=== PATIENT | male | born 1950 | race Caucasian/White ===

== ENCOUNTER 2020-05-27 05:18 | Observation (INO) ==
--- NOTE | 2020-05-07 15:51 | PAT Medication Instructions ---
Medication Instructions Date of Service May 07, 2020 Home Medications albuterol sulfate [ProAir HFA] 1 inh INHALATION QID PRN lisinopril 5 mg PO QPM mometasone 50 mcg INHALATION BID mometasone-formoterol [Dulera] 2 puff INHALATION BID sildenafil [Viagra] 100 mg PO DAILY PRN simvastatin 40 mg PO PM STOP taking 24 hours before surgery sildenafil [Viagra] 100 mg PO DAILY PRN Take morning of surgery OTHERWISE NOTHING TO EAT OR DRINK AFTER MIDNIGHT: albuterol sulfate [ProAir HFA] 1 inh INHALATION QID PRN (if needed, and bring with you to the hospital) mometasone 50 mcg INHALATION BID mometasone-formoterol [Dulera] 2 puff INHALATION BID Take evening before surgery albuterol sulfate [ProAir HFA] 1 inh INHALATION QID PRN (if needed) lisinopril 5 mg PO QPM mometasone 50 mcg INHALATION BID mometasone-formoterol [Dulera] 2 puff INHALATION BID simvastatin 40 mg PO PM Other Notes If you have any questions please call us at [phone] or [phone] or [phone] or [phone]
--- NOTE | 2020-05-08 11:06 | Anesthesiology Consultation ---
Date of Service May 08, 2020 Assessment & Plan (1) Encounter for pre-operative examination: COVID Status: As of 05/08 assessment, patient denies travel to endemic area, known exposure/sick contacts, or symptoms of COVID19. Patient instructed that they and their household members must follow strict social distancing guidelines, wear a mask in public and avoid travel/events/gatherings for 14 days prior to surgery. Preoperative COVID19 testing to be completed prior to surgery per surgeon's arrangements (05/21). Patient made aware to self-isolate as much as possible between COVID testing and surgery. Patient VERY concerned about having a catheter during surgery. He reports he has significant urethral scarring 2/2 prostatectomy and has been told he should not have a urinary catheter if possible. I informed him that I would document this for anesthesia, but he should make this clear to nursing staff and surgeon prior to surgery on DOS. Chart Review Chart Review: Acceptable Risk for Surgery and Patient seen in Pre Admission Testing Teaching & Discussion Instructed NPO after midnight before surgery, except medications with 15 cc of water. Medication instructions provided according to the PAT guidelines. History Surgery Operation Date: 05/27/20 10:30 Proposed Procedures p Left Anterior Total Hip Arthroplasty - Jorge Barrett DO Height/Weight Height: 5 ft 10 in Weight: 100.4 kg Allergies Allergy/AdvReac Type Severity Reaction Status Date / Time Bactrim Allergy Unknown Heart Verified 09/07/14 14:52 Races, sensation of climbing out of skin. sulfamethoxazole [Bactrim] Allergy Unknown Heart Verified 04/12/20 12:17 Races, sensation of climbing out of skin. trimethoprim [Bactrim] Allergy Unknown Heart Verified 04/12/20 12:17 Races, sensation of climbing out of skin. Medications Home Medications Medication Instructions Recorded Confirmed Last Taken albuterol sulfate [ProAir HFA] 1 inh INHALATION QID PRN 04/12/20 04/12/20 Unknown lisinopril 5 mg PO QPM 04/12/20 04/12/20 Unknown mometasone 50 mcg INHALATION BID 04/12/20 04/12/20 Unknown mometasone-formoterol [Dulera] 2 puff INHALATION BID 04/12/20 04/12/20 Unknown sildenafil [Viagra] 100 mg PO DAILY PRN 04/12/20 04/12/20 Unknown simvastatin 40 mg PO PM 04/12/20 04/12/20 Unknown Past Medical History Medical History Asthma Chronic obstructive pulmonary disease Dulera daily, never uses albuterol unless he has a cold/URI symptoms DJD (degenerative joint disease) Hyperlipidemia Hypertension Osteoarthritis Prostate cancer surgical intervention about 12 years ago Exercise / Class Metabolic Activity II 4-5 Yardwork/Stairs/Walk up hill Past Surgical History Surgical History Hx of colonoscopy Hx of prostatectomy about 12 years ago Hx of sinus surgery x3 for polyps Past Anesthesia History No Hx of Anesthesia Complications and No Family Hx of Anesthesia Complications History of PONV No Hx of PONV and No Hx of Motion Sickness Social History Smoking Status: Never smoker Do You Dip or Chew Tobacco: No Hx Alcohol Use: Yes alcohol intake frequency: a few times a month Hx Substance Use: No substance use type: does not use Review of Systems Pt denies any recent chest pain, shortness of breath, palpitations, cough, fever, URI, or uncontrolled acid reflux. +hoarseness, chronic Physical Exam Vital Signs BP: 151/91. Per review of S records, BP usually 130s/140s over 80s. P: 63bpm SPO2: 97% RA T: 98.5 F R: 16 ENMT Mouth: + dental restorations (implants, one post in preparation to have implant placed); no chipped teeth and no loose teeth Thyromental Distance: > or= 3.5 Finger Breadths Mallampati Class: III Neck + limited neck extension (mildly) and + facial hair (very short goatee) Respiratory normal respiratory effort, lungs clear to auscultation Cardiovascular RRR, no murmur, no edema Vessels: no carotid bruit Testing Laboratory Results 05/08/20 11:20 05/08/20 11:20 PT 9.9 Seconds (9.0-12.0) 05/08/20 11:20 INR 1.0 (0.9-1.1) 05/08/20 11:20 APTT 26.8 Seconds (21.0-31.0) 05/08/20 11:20 Urine Color Yellow 05/08/20 11:20 Urine Appearance Clear (Clear) 05/08/20 11:20 Urine pH 6.5 (4.5-7.5) 05/08/20 11:20 Ur Specific [place] 1.016 (1.000-1.030) 05/08/20 11:20 Urine Protein Negative (Negative) 05/08/20 11:20 Urine Glucose (UA) Negative (Negative) 05/08/20 11:20 Urine Ketones Negative (Negative) 05/08/20 11:20 Urine Nitrite Negative (Negative) 05/08/20 11:20 Ur Leukocyte Esterase Negative (Negative) 05/08/20 11:20 Blood Type O Positive 05/08/20 11:20 Antibody Screen NEGATIVE 05/08/20 11:20 Electrocardiogram Date: 05/08/20 Findings: + NSR @ (60bpm) and + no change from (2002) Chest X-Ray Date: 05/08/20 Findings: + NAD
[2020-05-08 12:01] LABS: Basophils # (auto) 0.04 K/uL (0-0.2); Basophils % (auto) 1.1 %; Eosinophils # (auto) 0.08 K/uL (0-0.5); Eosinophils % (auto) 2.2 %; Hematocrit (blood only) 43.1 % (42-52); Hemoglobin 14.7 g/dL (14.0-18.0); Immature Granulocytes # (auto) 0.01 K/uL (0.00-0.02); Immature Granulocytes % (auto) 0.3 %; Lymphocytes # (auto) 0.98 K/uL (1.2-3.4); Lymphocytes % (auto) 27.1 %; Mean Corpuscular Hemoglobin 28.8 pg (25-34); Mean Corpuscular Hgb Conc 34.1 g/dL (32-36); Mean Corpuscular Volume 84.5 fL (80-100); Mean Platelet Volume 10.3 fL (7.4-10.4); Monocytes # (auto) 0.42 K/uL (0.11-0.59); Monocytes % (auto) 11.6 %; Neutrophils # (auto) 2.09 K/uL (1.4-6.5); Neutrophils % (auto) 57.7 %; Platelet Count 160 K/uL (130-400); RDW Coefficient of Variation 13.8 % (11.5-14.5); RDW Standard Deviation 43.1 fL (36.4-46.3); White Blood Count 3.62 K/uL (4.8-10.8)
[2020-05-08 12:03] LABS: Appearance Urine Clear (Clear); Bilirubin Urine Negative (Negative); Blood Urine Negative (Negative); Color Urine Yellow; Glucose Urine UA Negative (Negative); Ketones Urine Negative (Negative); Leukocyte Esterase Urine Negative (Negative); Nitrite Urine Negative (Negative); Protein Urine Negative (Negative); Specific Gravity Urine 1.016 (1.000-1.030); Urobilinogen Urine Negative (Negative); pH Urine 6.5 (4.5-7.5)
--- NOTE | 2020-05-08 12:03 | XRay Report ---
XR chest Pre-admission PA/Lat HISTORY: 70 years-old Male pat preoperative exam. No acute chest complaints COMPARISON: None TECHNIQUE: PA and lateral views of the chest FINDINGS: Cardiomediastinal and hilar silhouettes are within normal limits. There is no pneumothorax, pleural e ffusion, airspace consolidation or overt pulmonary edema. The bones of the chest appear grossly intac t. IMPRESSION: No acute process. ACT 112: Negative or not required by law. The above report was generated using voice recognition software. It may contain grammatical, syntax o r spelling errors. Electronically signed by: Ferny Flores M.D. 05/08/2020 12:02 PM
[2020-05-08 12:15] LABS: Partial Thromboplastin Time 26.8 Seconds (21.0-31.0); Prothrombin Time 9.9 Seconds (9.0-12.0)
[2020-05-08 14:33] LABS: Albumin Level 3.6 gm/dl (3.4-5.0); BUN Creatinine Ratio 13.1 (10-20); Calcium 8.9 mg/dl (8.5-10.1); Creatinine Clr Calc Pharmacy 103.7 ml/min; Est GFR (African American) 105.8; Est GFR (Non-African American) 91.3; Potassium 4.1 mmol/L (3.5-5.1)
--- NOTE | 2020-05-08 16:20 | Electrocardiogram Report ---
Test Reason : Blood Pressure : / mmHG Vent. Rate : 060 BPM Atrial Rate : 060 BPM P-R Int : 190 ms QRS Dur : 088 ms QT Int : 386 ms P-R-T Axes : 071 036 033 degrees QTc Int : 386 ms Normal sinus rhythm Normal ECG When compared with ECG of 11-NOV-2002 13:14, No significant change was found Confirmed by Tavon Christian ([id number]) on 05/08/2020 4:19:54 PM Referred By: Jorge Barrett Confirmed By:Tavon Christian
[2020-05-09 08:28] LABS: Estimated Average Glucose 123 mg/dl; Hemoglobin A1C 5.9 % (4.5-5.6)
--- NOTE | 2020-05-25 08:22 | History & Physical Report ---
Date of Service May 27, 2020 Assessment & Plan (1) Degenerative joint disease of left hip: I have indicated the patient for left anterior total hip replacement. The risks, benefits and complications of surgery were explained to the patient which include but not limited to infection, acute blood loss, DVT/PE, injury to nerves, vessels, bone, soft tissue, arthrofibrosis, chronic pain, failure of the prosthesis, hip dislocation, leg length discrepancy, need for additional surgery, cardiac and pulmonary events and . The patient wished to proceed with surgery and informed consent was obtained at this time. We will plan for 81mg ASA BID post-operatively for DVT prophylaxis. Upon discharge the patient will be discharged home with home health services. Appropriate clearances by PCP were obtained. History of Present Illness Chief Complaint: Left hip pain/DJD Primary Care Provider: Reynaldo London PA-C The patient is a 70 year old male who presents with complaints of severe left hip pain and DJD. The patient has failed outpatient conservative treatments to this point which included NSAIDs, activity modification, home exercise/walking program. The patient's pain and limited function have progressed to the point where they severely hinder their activities of daily living and they no longer tolerate exercise programs. They are requesting to proceed with total hip replacement surgery. Allergies Allergy/AdvReac Type Severity Reaction Status Date / Time Bactrim Allergy Unknown Heart Verified 09/07/14 14:52 Races, sensation of climbing out of skin. sulfamethoxazole [Bactrim] Allergy Unknown Heart Verified 05/27/20 05:44 Races, sensation of climbing out of skin. trimethoprim [Bactrim] Allergy Unknown Heart Verified 05/27/20 05:44 Races, sensation of climbing out of skin. Home Medications Medication Instructions Recorded Confirmed Type albuterol sulfate [ProAir HFA] 1 inh INHALATION QID PRN 04/12/20 05/27/20 History lisinopril 5 mg PO QPM 04/12/20 05/27/20 History mometasone 50 mcg INHALATION BID 04/12/20 05/27/20 History mometasone-formoterol [Dulera] 2 puff INHALATION BID 04/12/20 05/27/20 History sildenafil [Viagra] 100 mg PO DAILY PRN 04/12/20 05/27/20 History simvastatin 40 mg PO PM 02/12/21 03/29/21 History Past Med/Surg History Medical History Asthma Chronic obstructive pulmonary disease Dulera daily, never uses albuterol unless he has a cold/URI symptoms DJD (degenerative joint disease) Hyperlipidemia Hypertension Osteoarthritis Prostate cancer surgical intervention about 12 years ago Surgical History Hx of colonoscopy Hx of prostatectomy about 12 years ago Hx of sinus surgery x3 for polyps Social History Smoking Status: Never smoker Second Hand Exposure: No; Do You Dip or Chew Tobacco: No; Tobacco Cessation Education Requested by Patient: No Hx Alcohol Use: Yes Hx Substance Use: No Preferred Language: Turkish Communication Ability: Effective Db2 Systems Programmer Required: No Beliefs That Will Affect Care: None Current Living Situation: Spouse Other Information That Helps Us Care for You: No Feels Safe at Home: Yes Safety Concerns: Feels Safe At This Time Review of Systems Review of Systems: All systems reviewed & are unremarkable except as noted in HPI & below Constitutional: as per Subjective / HPI Physical Exam Physical Exam: LLE NVSI +EHL/FHL/TA/GS SILT grossly, +2 DP pulse, compartments soft NT, limited painful ROM of the hip, antalgic gait. Constitutional: WD/WN, vitals as above Eyes: PERRL, conjunctivae normal, anicteric sclerae ENMT: external ear and nose normal, oropharynx normal Neck: trachea midline, no thyromegaly Respiratory: normal respiratory effort, lungs clear to auscultation Cardiovascular: RRR, no murmur, no edema Gastrointestinal (Abdomen): normal bowel sounds, soft, nontender, no hepat osplenomegaly Musculoskeletal: no cyanosis or clubbing, extremities motor strength 5/5 Skin: no rashes, warm and dry Neurologic: patellar DTR's 2+ bilat, sensation intact Psychiatric: A+Ox3, euthymic affect Lymphatic: no cervical or axillary lymphadenopathy Results & Data Results & Data ([facility]) Diagnostic Findings Multiple views of the hip demonstrates severe DJD with complete loss of the joint space. +osteophytes, +sclerosis, +subchondral cysts. Pre Admission Testing Addendum Laboratory Results 05/08/20 11:20 05/08/20 11:20 PT 9.9 Seconds (9.0-12.0) 05/08/20 11:20 INR 1.0 (0.9-1.1) 05/08/20 11:20 APTT 26.8 Seconds (21.0-31.0) 05/08/20 11:20 Hemoglobin A1c 5.9 % (4.5-5.6) H 05/08/20 11:20 Urine Color Yellow 05/08/20 11:20 Urine Appearance Clear (Clear) 05/08/20 11:20 Urine pH 6.5 (4.5-7.5) 05/08/20 11:20 Ur Specific [place] 1.016 (1.000-1.030) 05/08/20 11:20 Urine Protein Negative (Negative) 05/08/20 11:20 Urine Glucose (UA) Negative (Negative) 05/08/20 11:20 Urine Ketones Negative (Negative) 05/08/20 11:20 Urine Nitrite Negative (Negative) 05/08/20 11:20 Ur Leukocyte Esterase Negative (Negative) 05/08/20 11:20 Blood Type O Positive 05/08/20 11:20 Antibody Screen NEGATIVE 05/08/20 11:20
[2020-05-27] MEDS ORDERED: ROPIVACAINE 0.5% HCL/PF 150 MG, BUPIVACAINE 0.75% MPF 20 ML, EPINEPHrine 30MG/30ML (OR ... INFIL SCH (06:00)
[2020-05-27] MEDS ORDERED: TRANEXAMIC ACID 1,000 MG x 1 **For Topical Use TOP SCH (06:00)
[2020-05-27] MEDS ORDERED: FAMOTIDINE 20 MG TAB PO SCH (06:00)
[2020-05-27] MEDS ORDERED: Scopolamine 1 MG TDSY TD SCH (06:00)
[2020-05-27] MEDS ORDERED: TRANEXAMIC ACID 1,000 MG **IV Pre-op IV SCH (06:00)
[2020-05-27] MEDS ORDERED: TRANEXAMIC ACID 1,000 MG **IV Intra-op IV SCH (06:00)
[2020-05-27] MEDS ORDERED: GABAPENTIN 300 MG CAP PO SCH (06:00)
[2020-05-27] MEDS ORDERED: ACETAMINOPHEN 500 MG TAB PO SCH (06:00)
[2020-05-27] MEDS ORDERED: METOCLOPRAMIDE HCL 10 MG TABLET PO SCH (06:00)
[2020-05-27] MEDS ORDERED: LR 500ML BOLUS, THEN 15ML/HR IV SCH (06:00)
[2020-05-27] MEDS ORDERED: ceFAZolin 2000MG 2,000 MG/15 ML SYR IV SCH (06:00)
[2020-05-27] MEDS ORDERED: dexAMETHasone 4 MG TAB PO SCH (06:00)
[2020-05-27] MEDS ORDERED: fentaNYL citrate 100 MCG/2 ML VIAL ONE (06:33)
[2020-05-27] MEDS ORDERED: MIDAZOLAM HCL 1 MG/ML 2ML VIAL ONE (06:33)
[2020-05-27] MEDS ORDERED: BUPIVACAINE 0.5 % 5 MG/1 ML PF 10ML VIAL ONE (06:41)
--- NOTE | 2020-05-27 06:44 | History & Physical Bridge Note ---
Date of Service May 27, 2020 History & Physical Bridge Note I have examined the patient, reviewed the History & Physical and in the interval since the performance of the History & Physical I have noted the following changes of clinical significance: no changes noted
[2020-05-27] MEDS ORDERED: ORTHO JOINT ANESTHETIC ONE (06:45)
[2020-05-27] MEDS ORDERED: BACITRACIN INJ 50,000 UNIT VIAL ONE (06:45)
[2020-05-27] MEDS ORDERED: ONDANSETRON INJ 2 MG/ML 2 ML VIAL ONE (07:33)
[2020-05-27] MEDS ORDERED: LIDOCAINE HCL 2% 2 ML VIAL/AMP(20MG/ML) INFIL ONE (07:33)
[2020-05-27] MEDS ORDERED: PROPOFOL IV EMULSION 10 MG/ML 20 ML VIAL IV ONE ×3 (07:33→08:27)
[2020-05-27] MEDS ORDERED: ePHEDrine sulfate 50 MG/ML SYR ONE (07:34)
[2020-05-27] MEDS ORDERED: ePHEDrine sulfate 50 MG/ML AMP IV PRN (08:06)
[2020-05-27] MEDS ORDERED: ATROPINE SULFATE 0.1 MG/ML 10ML SYR IV PRN (08:06)
[2020-05-27] MEDS ORDERED: ONDANSETRON INJ 2 MG/ML 2 ML VIAL IV PRN ×2 (08:06→10:22)
[2020-05-27] MEDS ORDERED: fentaNYL citrate 100 MCG/2 ML VIAL IV PRN (08:06)
[2020-05-27] MEDS ORDERED: HYDROmorphone INJ 2 MG/ML SYR/VIAL IV PRN (08:06)
--- NOTE | 2020-05-27 09:01 | Post Operative Brief Note ---
Immediate Post Op Note v1 Date of Surgery May 27, 2020 Pre & Post Diagnosis Operation Date: 05/27/20 07:00 Pre-Op Diagnosis: Unilateral Primary Osteoarthritis, Left Hip Post-Op Diagnosis: Unilateral Primary Osteoarthritis, Left Hip I identified the patient and participated in the time-out.: Yes Procedure Operation Date: 05/27/20 07:00 Actual Procedures p Left Anterior Total Hip Arthroplasty(Left) - Jorge Barrett DO Surgeon Jorge Barrett DO Radioisotope Technologist Suman Parra Estimated Blood Loss 235 Findings Consistent with Post-Op Diagnosis Fluids See anesthesia report Specimens Femoral head Anesthesia Type Spinal MAC Complications none Disposition Disposition: Recovery Room Overlapping Procedure I was present for: the critical portions of procedure. I was immediately available: during the entire case. Back up surgeon: was not required during procedure.
--- NOTE | 2020-05-27 09:03 | Operative Report ---
Post Operative Report Pre & Post Diagnosis Operation Date: 05/27/20 07:00 Pre-Op Diagnosis: Unilateral Primary Osteoarthritis, Left Hip Post-Op Diagnosis: Unilateral Primary Osteoarthritis, Left Hip I identified the patient and participated in the time-out.: Yes Procedure Operation Date: 05/27/20 07:00 Actual Procedures p Left Anterior Total Hip Arthroplasty(Left) - Jorge Barrett DO Surgeon Jorge Barrett DO Operations Section Manager Suman Parra Estimated Blood Loss 235 Findings Consistent with Post-Op Diagnosis Fluids See anesthesia report Specimens Femoral head Anesthesia Type Spinal MAC Disposition Disposition: Recovery Room Indications The patient is a 70-year-old male who presents with severe progressive left hip DJD who has failed outpatient conservative treatments. I indicated the patient for a anterior total hip replacement and the risks and benefits were explained in detail which include but not limited to infection, bleeding, blood clot, damage to surrounding bone, nerves, vessels, soft tissue, hip dislocation, failure of the prosthesis, leg length discrepancy, need for additional surgery and . The patient agreed to proceed with replacement of the hip and informed consent was obtained. Appropriate clearances were obtained. Description of Procedure COMPONENTS USED: [employer] hip system: Acetabulum size 56 G7 osteo-Ti, femur size 13.5 standard extended offset, femoral head 36+3.5, liner 56x30, acetabular screw 25 mm x 1. DESCRIPTION OF PROCEDURE: Following satisfactory spinal anesthesia, the patient was placed supine on the OR table. The right leg was placed in the well leg espinosa and the left leg in the traction device. The left leg was prepared with ChloraPrep and draped sterilely. A surgical timeout was performed, patient identified and site shahram verified. Appropriate antibiotics were given. A standard anterior approach in the interval between the sartorius and tensor muscles was performed. Dissection was carried down through subcutaneous tissues. Electrocautery was utilized for hemostasis. Circumflex femoral vessels were identified, tied and ligated. The anterior capsular fat pad was removed and the capsulotomy was performed revealing the arthritic femoral neck and head. A femoral neck cut was made with reciprocating saw and the bone fragments removed. The acetabular self-retraining retractor was placed. Acetabular reaming was completed under fluoroscopic guidance, a 56 mm shell was impacted into an anatomic position and secured with a acetabular screw. Local anesthetic was placed and following irrigation, the polyethylene liner was placed. The femur was placed into position of external rotation, extension and adduction. Femoral canal was prepared up to the size 13.5 standard extended offset. Trial reduction with a 36+3.5 neck length head showed good soft tissue tension, leg lengths restored, and good fit and fill of the proximal canal using fluoroscopic landmarks. The hip was dislocated. The trial component was removed. The final implant was placed. The hip was irrigated with sterile saline solution and reduced. A Betadine soak was performed. After 3 minutes, the hip was once more irrigated with copious sterile saline solution with bacitracin. Karen-incisional soft tissue was injected utilizing [place] [employer]ix which includes a combination of Ropivicaine 0.5% 150mg, Bupivicaine 0.5%/Epinephrine 1:200,000 30ml, Toradol 30mg, Dexamethasone 4mg, Ketamine 10mg, Clonidine 100mcg and NSS 30ml solution. The capsule was then closed with 1-0 Vicryl interrupted figure of eight sutures. The fascia was closed with a running suture of #1 Vicryl, the subcutaneous tissues with 2-0 Vicryl and the skin was closed with tatum and a sterile dry dressing was applied which included victor manuel incisional VAC. The patient tolerated the procedure well and was transported to PACU in stable condition. Due to the complex nature of the procedure, the entire surgery was performed with the operational assistance of Suman Parra PA-C. The environmental engineering assistant, under direct supervision, was involved in the actual performance of all aspects of the surgical procedure including patient positioning, hemostasis, tissue retraction, instrument management and wound closure. I attest to the content of the Intraoperative Record and any orders documented therein. Any exceptions are noted below.
--- NOTE | 2020-05-27 09:40 | XRay Report ---
AP PELVIS, CROSSTABLE LATERAL LEFT HIP History: Left total hip arthroplasty. Degenerative arthritis. Postop. FINDINGS: The patient is status post a left total hip arthroplasty. The hardware is intact. No fractu re or dislocation. Skin tatum are in place. IMPRESSION: Left total hip arthroplasty. No evidence for hardware complication. ACT 112: Negative or not required by law. Electronically signed by: Jack Payne M.D. 05/27/2020 9:38 AM
--- NOTE | 2020-05-27 10:00 | Fluoroscopy Report ---
FL hip LT 1V CLINICAL HISTORY: LEFT ANTERIOR HIP COMPARISON STUDY: None FLUOROSCOPY TIME: 31 seconds. FLUOROSCOPIC IMAGES: 3 FINDINGS: Fluoroscopy was provided during total left hip arthroplasty. Hardware is intact. Alignment is anatomic. No fractures are identified. There are no unexpected radiopaque foreign bodies. IMPRESSION: Fluoroscopy provided during total left hip arthroplasty. ACT 112: Negative or not required by law. Electronically signed by: Quan Roper M.D. 05/27/2020 9:59 AM
[2020-05-27] MEDS ORDERED: NALOXONE HCL 0.4 MG/1 ML VIAL/CARP IV PRN (10:22)
[2020-05-27] MEDS ORDERED: diphenhydrAMINE Capsule 25 MG CAP PO PRN (10:22)
[2020-05-27] MEDS: SODIUM CHLORIDE 0.9% 1000ML 1,000 ML IV SCH ×2 (10:22→19:48)
[2020-05-27] MEDS ORDERED: bisacodyL 10 MG SUPP PR PRN (10:22)
[2020-05-27] MEDS ORDERED: METOCLOPRAMIDE HCL INJ 5 MG/ML 2 ML VIAL IV PRN (10:22)
[2020-05-27] MEDS ORDERED: MAGNESIUM HYDROXIDE SUSP 30 ML UDC PO PRN (10:22)
[2020-05-27] MEDS ORDERED: HYDROmorphone INJ 0.5 MG/0.5 ML SYR IV PRN (10:22)
--- NOTE | 2020-05-27 10:24 | Anesthesiology Progress Note ---
Date of Service May 27, 2020 Anesthesia Post Procedure Vital Signs Vital Signs: Temp Pulse Pulse Resp BP Pulse Ox 05/27/20 10:15 72 16 138/98 98 05/27/20 10:00 36.4 C L 80 15 137/85 98 05/27/20 09:50 36.4 C L 82 15 145/87 H 96 05/27/20 09:40 83 14 106/85 96 05/27/20 09:30 81 15 127/64 99 05/27/20 09:21 36.3 C L 82 16 119/73 99 05/27/20 05:48 36.7 C 65 18 167/95 H 96 Transfer of Care Handoff Completed per policy Notes Mental Status: alert / awake / arousable and participated in evaluation Patient Amnestic to Procedure: Yes Nausea / Vomiting: adequately controlled Pain: adequately controlled Airway Patency, RR, SpO2: stable & adequate BP & HR: stable & adequate Hydration State: stable & adequate Neuraxial Anesthesia: was administered and sensory block is resolving Anesthetic Complications: no major complications apparent
[2020-05-27] MEDS: KETOROLAC TROMETHAMINE 15 MG/ML VIAL IV SCH ×2 (11:28→18:18)
[2020-05-27] MEDS: ACETAMINOPHEN 500 MG TAB PO SCH ×2 (14:17→22:32)
[2020-05-27] MEDS: ceFAZolin 2000MG 2,000 MG/15 ML SYR IV SCH (16:16)
[2020-05-27] MEDS: Scopolamine CHECK PATCH PLACEMENT SCH (16:22)
--- NOTE | 2020-05-27 17:00 | Orthopedic Progress Note ---
Date of Service May 27, 2020 Assessment & Plan (1) Degenerative joint disease of left hip: Status post left anterior total hip arthroplasty -Ancef x24 -DVT prophylaxis: SCDs, teds, 81 mg ASA twice daily -Weight-bear as tolerated left lower extremity -PT/OT -Postoperative x-ray demonstrates a well aligned well fixed prosthesis without fracture or dislocation -A.m. lab -Discharge planning home with home health Admission and Anticipated Discharge Date Admission Date: May 27, 2020 Subjective Post Operative Progress Note Patient seen sitting in chair at bedside, comfortable, denies complaints, pain well controlled, no acute issues. Review of Systems Review of Systems: All systems reviewed & are unremarkable except as noted in HPI & below Constitutional: as per Subjective / HPI Physical Exam Physical Exam: LLE NVSI +EHL/FHL/TA/GS SILT grossly, +2 DP pulse, compartments soft NT, dressing cdi. Constitutional: WD/WN, vitals as above Results & Data ([facility]) Vital Signs (Past 12 Hours) Vital Signs Temp Pulse Pulse Resp BP Pulse Ox 05/27/20 15:07 36.3 C L 77 18 129/87 95 05/27/20 13:27 36.3 C L 96 H 18 126/80 92 05/27/20 12:20 36.6 C 72 18 149/87 H 96 05/27/20 11:20 36.3 C L 73 16 157/85 H 96 05/27/20 10:50 36.4 C L 77 16 147/100 H 96 05/27/20 10:15 72 16 138/98 98 05/27/20 10:00 36.4 C L 80 15 137/85 98 05/27/20 09:50 36.4 C L 82 15 145/87 H 96 05/27/20 09:40 83 14 106/85 96 05/27/20 09:30 81 15 127/64 99 05/27/20 09:21 36.3 C L 82 16 119/73 99 05/27/20 05:48 36.7 C 65 18 167/95 H 96
[2020-05-27] MEDS: DOCUSATE SODIUM 100 MG CAP PO SCH (20:30)
[2020-05-27] MEDS ORDERED: SENNA 8.6 MG TAB PO SCH (21:00)
[2020-05-28] MEDS: ceFAZolin 2000MG 2,000 MG/15 ML SYR IV SCH (00:08)
[2020-05-28] MEDS: KETOROLAC TROMETHAMINE 15 MG/ML VIAL IV SCH ×2 (00:08→05:22)
[2020-05-28] MEDS: Scopolamine CHECK PATCH PLACEMENT SCH ×2 (00:08→09:22)
[2020-05-28] MEDS: oxyCODONE HCL IR 5 MG TAB (IMMEDIATE RELEASE) PO PRN ×2 (00:37→04:22)
[2020-05-28] MEDS ORDERED: diazePAM 5 MG TABLET PO PRN (02:17)
[2020-05-28] MEDS: ACETAMINOPHEN 500 MG TAB PO SCH ×2 (05:22→13:38)
[2020-05-28 06:50] LABS: Basophils # (auto) 0.01 K/uL (0-0.2); Basophils % (auto) 0.1 %; Eosinophils # (auto) 0.01 K/uL (0-0.5); Eosinophils % (auto) 0.1 %; Hematocrit (blood only) 33.1 % (42-52); Hemoglobin 11.3 g/dL (14.0-18.0); Immature Granulocytes # (auto) 0.01 K/uL (0.00-0.02); Immature Granulocytes % (auto) 0.1 %; Lymphocytes # (auto) 0.82 K/uL (1.2-3.4); Lymphocytes % (auto) 9.5 %; Mean Corpuscular Hemoglobin 28.8 pg (25-34); Mean Corpuscular Hgb Conc 34.1 g/dL (32-36); Mean Corpuscular Volume 84.2 fL (80-100); Mean Platelet Volume 9.8 fL (7.4-10.4); Monocytes # (auto) 0.83 K/uL (0.11-0.59); Monocytes % (auto) 9.7 %; Neutrophils # (auto) 6.92 K/uL (1.4-6.5); Neutrophils % (auto) 80.5 %; Platelet Count 186 K/uL (130-400); RDW Coefficient of Variation 13.5 % (11.5-14.5); RDW Standard Deviation 41.1 fL (36.4-46.3); Red Blood Count 3.93 M/uL (4.7-6.1)
--- NOTE | 2020-05-28 07:10 | Orthopedic Progress Note ---
Date of Service May 28, 2020 Assessment & Plan (1) Degenerative joint disease of left hip: Status post left anterior total hip arthroplasty POD#1 -Ancef x24 -DVT prophylaxis: SCDs, teds, 81 mg ASA twice daily -Weight-bear as tolerated left lower extremity -PT/OT -Postoperative x-ray demonstrates a well aligned well fixed prosthesis without fracture or dislocation -A.m. lab - as above, hgb 11.3 -Discharge planning home with home health Admission and Anticipated Discharge Date Admission Date: May 27, 2020 Subjective Post Operative Progress Note Patient seen sitting in chair at bedside, comfortable, denies complaints, pain well controlled, no acute issues. Denies F/C/N/V/SOB/CP. Patient reported muscles spasms overnight which have improved. Review of Systems Review of Systems: All systems reviewed & are unremarkable except as noted in HPI & below Constitutional: as per Subjective / HPI Physical Exam Physical Exam: LLE NVSI +EHL/FHL/TA/GS SILT grossly, +2 DP pulse, compartments soft NT, dressing cdi. Constitutional: WD/WN, vitals as above Results & Data ([facility]) Vital Signs (Past 12 Hours) Vital Signs Temp Pulse Resp BP Pulse Ox 05/28/20 02:05 36.4 C L 68 18 143/85 H 96 05/27/20 22:46 36.5 C 69 16 146/77 H 94 05/27/20 19:35 36.6 C 77 16 114/74 95 Laboratory Results 05/28/20 05/28/20 05/28/20 Range/Units 06:26 06:26 06:26 WBC 8.60 (4.8-10.8) K/uL RBC 3.93 L (4.7-6.1) M/uL Hgb 11.3 L (14.0-18.0) g/dL Hct 33.1 L (42-52) % MCV 84.2 (80-100) fL MCH 28.8 (25-34) pg MCHC 34.1 (32-36) g/dL RDW Std Deviation 41.1 (36.4-46.3) fL RDW Coeff of Mary 13.5 (11.5-14.5) % Plt Count 186 (130-400) K/uL MPV 9.8 (7.4-10.4) fL Immature Gran % (Auto) 0.1 % Neut % (Auto) 80.5 % Lymph % (Auto) 9.5 % [place] % (Auto) 9.7 % Eos % (Auto) 0.1 % Baso % (Auto) 0.1 % Neut # (Auto) 6.92 H (1.4-6.5) K/uL Lymph # (Auto) 0.82 L (1.2-3.4) K/uL [place] # (Auto) 0.83 H (0.11-0.59) K/uL Eos # (Auto) 0.01 (0-0.5) K/uL Baso # (Auto) 0.01 (0-0.2) K/uL Immature Gran # (Auto) 0.01 (0.00-0.02) K/uL Sodium Pending Potassium Pending Chloride Pending Carbon Dioxide Pending Anion Gap Pending BUN Pending Creatinine Pending Est Cr Clr Drug Dosing Pending Est GFR ( Amer) Pending Est GFR (Non-Af Amer) Pending BUN/Creatinine Ratio Pending Glucose Pending Calcium Pending Hepatitis C Ab Screen Pending
[2020-05-28 07:17] LABS: BUN Creatinine Ratio 20.8 (10-20); Calcium 8.7 mg/dl (8.5-10.1); Creatinine Clr Calc Pharmacy 113.7 ml/min; Est GFR (African American) 103.8; Est GFR (Non-African American) 89.5; Potassium 4.1 mmol/L (3.5-5.1)
--- NOTE | 2020-05-28 08:08 | Anesthesiology Progress Note ---
Date of Service May 28, 2020 Anesthesia Post Procedure Vital Signs Vital Signs: Temp Pulse Pulse Resp BP Pulse Ox 05/28/20 07:39 36.5 C 61 16 138/76 96 05/28/20 02:05 36.4 C L 68 18 143/85 H 96 05/27/20 22:46 36.5 C 69 16 146/77 H 94 05/27/20 19:35 36.6 C 77 16 114/74 95 05/27/20 15:07 36.3 C L 77 18 129/87 95 05/27/20 13:27 36.3 C L 96 H 18 126/80 92 05/27/20 12:20 36.6 C 72 18 149/87 H 96 05/27/20 11:20 36.3 C L 73 16 157/85 H 96 05/27/20 10:50 36.4 C L 77 16 147/100 H 96 05/27/20 10:15 72 16 138/98 98 05/27/20 10:00 36.4 C L 80 15 137/85 98 05/27/20 09:50 36.4 C L 82 15 145/87 H 96 05/27/20 09:40 83 14 106/85 96 05/27/20 09:30 81 15 127/64 99 05/27/20 09:21 36.3 C L 82 16 119/73 99 Pain Intensity Hip: Pain Intensity: 1 Notes Mental Status: alert / awake / arousable Nausea / Vomiting: adequately controlled Pain: adequately controlled Airway Patency, RR, SpO2: stable & adequate BP & HR: stable & adequate Hydration State: stable & adequate Neuraxial Anesthesia: was administered and sensory block resolved Anesthetic Complications: no major complications apparent and Pt Satisfied with anesthetic care
[2020-05-28] MEDS ORDERED: MULTIVITAMIN TAB PO SCH (09:00)
[2020-05-28] MEDS ORDERED: ASPIRIN 81 MG ECTAB PO SCH (09:00)
[2020-05-28] MEDS: DOCUSATE SODIUM 100 MG CAP PO SCH (09:22)
--- NOTE | 2020-05-28 21:40 | Discharge Summary ---
Date of Service May 28, 2020 Admission HPI Per Admitting Provider The patient is a 70 year old male who presents with complaints of severe left hip pain and DJD. The patient has failed outpatient conservative treatments to this point which included NSAIDs, activity modification, home exercise/walking program. The patient's pain and limited function have progressed to the point where they severely hinder their activities of daily living and they no longer tolerate exercise programs. They are requesting to proceed with total hip replacement surgery. Principal Diagnosis Left anterior total hip replacement Discharge Exam LLE NVSI +EHL/FHL/TA/GS SILT grossly, +2 DP pulse, compartments soft NT, dressing cdi. Constitutional WD/WN, vitals as above Discharge Data Allergies Allergy/AdvReac Type Severity Reaction Status Date / Time Bactrim Allergy Unknown Heart Verified 09/07/14 14:52 Races, sensation of climbing out of skin. sulfamethoxazole [Bactrim] Allergy Unknown Heart Verified 05/27/20 05:44 Races, sensation of climbing out of skin. trimethoprim [Bactrim] Allergy Unknown Heart Verified 05/27/20 05:44 Races, sensation of climbing out of skin. Procedures Performed Operation Date: 05/27/20 07:00 Actual Procedures p Left Anterior Total Hip Arthroplasty(Left) - Jorge Barrett DO Ordered Studies 05/27/20 07:00 FL fluoroscopy <1hr Routine FL hip LT 1V Routine Hospital Course (1) Degenerative joint disease of left hip: The patient is a 70 -year-old male who presents with long standing history of severe left hip DJD and failed outpatient conservative treatments. The patient's symptoms have progressed to the point where it has been difficult to perform even normal activities of daily living. I indicated the patient for a left anterior total hip arthroplasty, the risks, benefits and complications of the procedure include but not limited to infection, bleeding, damage to bone, nerves, vessels, surrounding soft tissue, may develop blood clots, loss of function, leg length discrepancy, dislocation, failure of the components, loosening of the components, the need for additional surgery and . The patient wished to proceed with surgery at this time and informed consent was obtained. Hospital Course: On 05/27/20 the patient was taken to the operating room, adequate anesthesia administered and underwent a left anterior total hip arthroplasty. The patient tolerated the procedure well and was taken to the PACU in stable condition. Post-operatively the patient was started on a DVT ppx medication and given appropriate IV antibiotics. Consults were placed to physical therapy, occupational therapy and case management. On POD#1, the patient did well overnight and their pain was well controlled. Labs were drawn and the Hgb was 11.3. The patient progressed well with PT. Dressings were changed at this time and the incision was clean, dry and intact. The patients hospital stay was relatively uneventful and they were deemed stable by the orthopedic team and consultants to be discharged home with on 05/28/20. Discharge Instructions: Upon discharge the patient may weight bear as tolerates through their operative extremity. They were instructed to keep the incision clean and dry at all times. The patient may shower but should not submerge the incision, avoid bathing, pools and hot tubs. The patient was given a script for pain medication and should take as instructed. The patient was given a script for DVT ppx 81mg ASA BID and should take as directed. The patient was instructed to not drive or travel for long distances until cleared to do so. If the patient develops any symptoms of fevers, chills, nausea, vomiting, increased redness, swelling, pain or drainage from the surgical site, they should notify the office and/or proceed to the nearest emergency room. The patient should follow up in 10-14 days after surgery for their routine post-operative follow-up appointment and should call the office, to confirm the date and time. Status post left anterior total hip arthroplasty POD#1 -Ancef x24 -DVT prophylaxis: SCDs, teds, 81 mg ASA twice daily -Weight-bear as tolerated left lower extremity -PT/OT -Postoperative x-ray demonstrates a well aligned well fixed prosthesis without fracture or dislocation -A.m. lab - as above, hgb 11.3 -Discharge planning home with home health Total Time Total Time Spent Total Time Spent (In Minutes): 30 Discharge Plan Discharge Items Patient Disposition: Home - Home Health Services Reason For Visit: Unilateral Primary Osteoarthritis, Left Hip Discharge Diagnosis: Left anterior total hip replacement Condition on Discharge: Good Activity: Per Instructions section Lifting: Wait until after follow-up appointment Bathing: Keep incision dry Bathing Comment: No bathing, pools or hot tubs. Sexual Activity: Wait until after follow-up appointment Exercise/Sports: Wait until after follow-up appointment Driving/Machine Use: No driving. Weightbearing: Full weightbearing Non-emergency contact: Primary Care Provider and Surgeon Call non-emergency contact if: you have any medication questions, your symptoms worsen, your pain is not controlled, your pain is worsening, your pain is unusual for you, your pain is concerning for you, you have a fever, your temperature is above 101, your wound has increased redness, your wound has increased drainage and your wound pain has increased Follow-up/Referrals: Reynaldo London PA-C [Primary Care Provider] - Diet: Regular Addtl Attending Provider Instructions: ACTIVITY RECOMMENDATIONS: SELF CARE INSTRUCTIONS AFTER TOTAL HIP REPLACEMENT : Direct Anterior Approach Until the incision and soft tissues around your hip have healed, there is a possibility that the hip prosthesis could dislocate. A. Hip flexion ( Up & Down out of chair or steps ) may be difficult. This is normal. B. Numbness in front of the thigh is also normal for a few weeks. C. Use hand rails when walking on stairs. D. Wear low heeled shoes with non-slip soles. E. Be sure that your floors are free of things that could trip you - throw rugs, electrical cords, small objects. Avoid wet and waxed floors, especially with crutches and canes. F. Try to walk several times a day with rest periods between. G. Continue with all the exercises taught to you in the hospital. Again, make walking a part of your daily routine. SPECIAL CARE INSTRUCTIONS: VERY IMPORTANT TO READ AND REVIEW A. You may still be at risk for phlebitis and blood clots. 1. Wear surgical stockings (FREDERIC hose) for 2 weeks after surgery to improve circulation and reduce swelling. 2. Take Aspirin 81mg twice daily for 4 weeks or as directed by your doctor. This is your blood thinner. 3. High risk patients may be prescribed a stronger blood thinner if necessary. 4. If you are on Coumadin normally, your family doctor/geochemist should monitor your blood work. Expect a phone call the day of or the day after bloodwork is drawn to adjust your dosage. B. You must take antibiotics before having dental work, bladder, bowel and other surgery. Your doctor will provide you with a permanent card to carry describing precautions. C. Call [facility] if you have a fever, redness or swelling around the incision, cloudy drainage from incision, or sudden increase in pain in your hip, not relieved by your regular pain medication. D. Please call the office at if you have any concerns or questions about your operation or recovery. * YOU MAY SHOWER, NO TUB BATHS UNTIL CLEARED BY YOUR DOCTOR. - Keep an extra close eye on the top portion of your incision. Be sure to keep clean & dry. * WEAR FREDERIC HOSE 20 HOURS PER DAY FOR 2 WEEKS. * YOU MAY PROGRESS FROM A WALKER, TO A CANE, TO INDEPENDENT AT YOUR OWN PACE. * MOST PATIENTS WILL HAVE HOME NURSING FOR THERAPY. IF YOU DECIDE TO DO OUTPATIENT PHYSICAL THERAPY, PLEASE SCHEDULE THIS 3 TIMES PER WEEK. *DUONG incisional vac is a special dressing covering your incision. This dressing provides a sterile dry environment while you are healing. The dressing is to be left in place for 7 days post-operatively. Your home nurse or surgeon will remove. If you develop any redness or blisters or have any questions notify your surgeon immediately. FOLLOW UP VISIT: If appointment is not already scheduled: Please call [facility] to make a follow-up appointment for 2 weeks after your surgery at . Pending Studies at Discharge: No Stand-Alone Forms: My [employer] [facility] [employer], Opioid Pain Management, Smoking Cessation Medications and DC Order Prescriptions: New acetaminophen 500 mg Tablet 1,000 mg PO Q8 PRN (Reason: fever or pain) Qty: 90 RF: 0 aspirin 81 mg Tablet,Delayed Release (Dr/Ec) 81 mg PO BID Qty: 56 RF: 0 oxycodone 5 mg Tablet 5 mg PO Q6H MDD 4 PRN (Reason: pain) Qty: 30 RF: 0 sennosides [Senokot] 8.6 mg Tablet 17.2 mg PO HS PRN (Reason: constipation) Qty: 28 RF: 0 Continued sildenafil [Viagra] 100 mg Tablet 100 mg PO DAILY PRN (Reason: intercourse) RF: 0 simvastatin 40 mg Tablet 40 mg PO PM RF: 0 lisinopril 5 mg Tablet 5 mg PO QPM RF: 0 albuterol sulfate [ProAir HFA] 90 mcg/actuation Hfa Aerosol Inhaler 1 inh INHALATION QID PRN (Reason: sob) RF: 0 Dulera 100-5 mcg/actuation Hfa Aerosol Inhaler 2 puff INHALATION BID RF: 0 mometasone 50 mcg/actuation Hfa Aerosol Inhaler 50 mcg INHALATION BID RF: 0 Discharge Orders: Discharge Order (Routine); Ordered 05/28/20 Ordered By: Jorge Sherman/Other Patient Handouts: DVT Post Op Prevention Admission Data Admit Date/Time: 05/27/20 09:21 Attending Provider: Jorge Barrett Admit Provider: Jorge Barrett Primary Care Provider: Reynaldo London Other Providers: [facility]Home Health Other Interventions: Discharge Summary Assessment (RN) Last Done: 05/28/20 13:26
== END 2020-05-28 14:17 | disposition home health service (06) ==
LOC: 3E 05:18 → ASU 05:18